=== PATIENT | male | born 1980 | race African-American/Black ===

== ENCOUNTER 2018-11-01 05:31 | Emergency (ER) | payer OTHER ==
[~2018-11-01] VITALS: Ht 188 cm; Wt 74.8 kg
[~2018-11-01 05:31] MED LIST: BACTRIM DS TAB1 EACH PO; NORCO 5-325 TA1 EACH PO
[2018-11-01 06:41] VITALS: BP 121/73
== END 2018-11-01 06:32 | disposition home or self-care (01) ==
LOC: M.ERS 05:31
DX: K40.90 Unilateral inguinal hernia, without obstruction or gangrene, not specified as recurrent (principal)